=== PATIENT | male | born 1985 | race Two or more races ===

== ENCOUNTER 2024-08-29 10:14 | Emergency (ER) | payer MEDICAID, SELFPAY ==
[2024-08-29 10:33] VITALS: BP 142/74; PULSE 71; RESP 19; TEMP 36.7; O2SAT 98
[2024-08-29 10:35] VITALS: BMI 26.8
--- NOTE | 2024-08-29 10:41 | PD.EDADULT ---
ED General RME/HPI General Chief complaint: General Adult/Misc Complain Stated complaint: ITCHING AND WARTS ON PENIS Time Seen by Provider: 08/29/24 10:21 Source: patient Arrival date/time: 08/29/24 10:14 38-year-old male with no known medical history presents to the emergency room with a chief complaint of itching and small warts on his penis x 2 weeks Mode of arrival: ambulatory Limitations: no limitations Related Data Allergies Allergy/AdvReac Type Severity Reaction Status Date / Time No Known Allergies Allergy Verified 08/29/24 10:19 Review of Systems Review of Systems Systems Reviewed: All systems reviewed, normal except as documented Constitutional Constitutional: Reports system reviewed and no additional complaints, except as documented, Denies fatigue, Denies fever(s), Denies headache(s) and Denies weakness Eyes Eyes: Reports system reviewed and no additional complaints, except as documented, Denies blurry vision and Denies change in vision ENT Ears, Nose, Mouth, and Throat: Reports system reviewed and no additional complaints, except as documented, Denies otalgia, Denies headache(s), Denies nasal congestion, Denies throat swelling and Denies vertigo Cardiovascular Cardiovascular: Reports system reviewed and no additional complaints, except as documented, Denies chest pain, Denies dyspnea and Denies dyspnea on exertion Respiratory Respiratory: Reports system reviewed and no additional complaints, except as documented, Denies chest congestion, Denies cough, Denies dyspnea, Denies dyspnea on exertion and Denies wheezing Gastrointestinal Gastrointestinal: Reports system reviewed and no additional complaints, except as documented, Denies abdominal pain, Denies cramping, Denies nausea and Denies vomiting Genitourinary Genitourinary: Reports system reviewed and no additional complaints, except as documented, Denies dysuria and Denies hematuria Musculoskeletal Musculoskeletal: Reports system reviewed and no additional complaints, except as documented and Denies back pain Integumentary/Breasts Skin/Breast: Reports system reviewed and no additional complaints, except as documented and Denies wounds Neurologic Neurologic: Reports system reviewed and no additional complaints, except as documented, Denies confusion, Denies headache(s), Denies lack of coordination, Denies vertigo and Denies weakness Psychiatric Psychiatric: Reports system reviewed and no additional complaints, except as documented, Denies anxiety, Denies confusion, Denies depression, Denies paranoia, Denies suicidal ideation and Denies tactile hallucinations Endocrine Endocrine: Reports system reviewed and no additional complaints, except as documented and Denies fatigue Hematologic/Lymphatic Hematologic/Lymphatic: Reports system reviewed and no additional complaints, except as documented and Denies lymphadenopathy Allergic/Immunologic Allergic/Immunologic: Reports system reviewed and no additional complaints, except as documented, Denies throat swelling, Denies urticaria and Denies wheezing ED Exam General Limitations: Present no limitations General appearance: Present alert and in no apparent distress Head Head exam: Present atraumatic Eye Eye exam: Present normal appearance, PERRL and EOMI ENT ENT exam: Present normal exam, normal oropharynx and mucous membranes moist Neck Neck exam: Present normal inspection, full ROM and trachea midline Chest Chest inspection: Present normal inspection and symmetric chest wall rise Respiratory Respiratory exam: Present normal lung sounds bilaterally Cardiovascular Cardiovascular exam: Present regular rate, normal rhythm and normal heart sounds Abdominal Exam Abdominal exam: Present soft and normal bowel sounds exam: Absent circumcised Expanded Exam exam: Present other (3 small warts to the head of the penis) Extremities Exam Extremities exam: Present normal inspection and full ROM Back Exam Back exam: Present normal inspection and full ROM Neurological Exam Neurological exam: Present alert, oriented X3 and CN II-XII intact Psychiatric Psychiatric exam: Present normal affect and normal mood Skin Skin exam: Present warm, dry, intact and normal color Course Quality Measures none Orders Category Date Time Status Chlamydia/GC/TV - PCR Stat Lab 08/29/24 13:23 Received Syphilis Stat Lab 08/29/24 11:08 Completed UA, C/S IF [Urinalysis, C/S if Indicated] Stat Lab 08/29/24 13:23 Completed Vital Signs Vital signs: Vital Signs Temperature 98.1 F 08/29/24 10:33 Pulse Rate 71 08/29/24 10:33 Respiratory Rate 19 08/29/24 10:33 Blood Pressure 142/74 H 08/29/24 10:33 Pulse Oximetry (%) 98 08/29/24 10:33 Oxygen Delivery Method Room Air 08/29/24 10:33 O2 saturation 98% within normal limits he will MDM Patient data External records reviewed:: [facility] previous records Clinical information provided by:: patient Social determinants that could affect healthcare access:: none Patient has the following chronic illnesses:: No chronic illness How is presenting disease/condition affected by chronic disease/condition?: no chronic disease Evaluation data The following diagnostics were reviewed and interpreted by me:: lab results and radiology exam(s) Lab and/or radiology exams considered but not ordered:: Labs and radiology exams considered and ordered Interpretation Summary: N/A Medications Medications considered but not ordered:: No medication given Medication administrations:: No medication given Consultations Consultation(s) initiated? (list below): No Diagnosis Differential Diagnosis ED Complaint MDM: HPV/UTI/chlamydia/gonorrhea/syphilis Most likely diagnosis given after review of the tests above:: HPV Admission Indicated Admission indicated?: not indicated Explain why admission is indicated or not indicated:: N/A Admission Request Was there a request for admission?: No Disposition Plan Disposition Plan: Discharge Discharge Attestation Discharge Attestation: The patient and all family members were given an opportunity to ask questions and understood the discharge instructions. Discharge instructions specifically effects, indications for sooner follow up or return to the emergency department, and the expected course of current diagnosis. Patient condition: Stable Medical Decision Making MDM Narrative MDM Narrative: 38-year-old male with no known medical history presents to the emergency room with a chief complaint of itching and small warts on his penis x 2 weeks Differential Diagnosis Differential Diagnosis: HPV/UTI/chlamydia/gonorrhea/syphilis Lab Data Labs: Lab Results 08/29/24 08/29/24 Range/Units 11:08 13:23 Ur Collection Type Clean Catch Urine Color Lt-Yellow (Lt Yel-Yel) Urine Clarity Turbid A (Clear/Hazy) Urine pH 7.5 H (5.0-7.0) Ur Specific [place] 1.016 (1.001-1.035) Urine Protein Negative (Neg - Trace) Urine Glucose (UA) Negative (Negative) Urine Ketones Negative (Negative) Urine Blood Negative (Negative) Urine Nitrite Negative (Negative) Urine Bilirubin Negative (Negative) Urine Urobilinogen (Auto) Negative (0.0-1.0) mg/dL Ur Leukocyte Esterase Negative (Negative) Urine RBC 0 (0-3) /hpf Urine WBC 0 (0-5) /hpf Ur Squamous Epith Cells 0 (0-5) /hpf Amorphous Crystals Present A (Absent) Urine Bacteria None (None) Ur Culture Indicated? 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 For any evidence of worsening signs or symptoms please return to the emergency room immediately Print Language: Cypriot Stand Alone Forms: [place] Award Info., Patient Portal Info Letter PA/TONYA Supervising Physician PA/TONYA Supervising Physician: Dr Jesus
[2024-08-29 12:02] LABS: Syphilis Nonreactive (Nonreactive)
[2024-08-29 13:41] LABS: Collection Type, Urine Clean Catch; RBC,Urine 0 /hpf (0-3); Squamous Epithelial Cell,Urine 0 /hpf (0-5); WBC,Urine 0 /hpf (0-5)
[2024-08-29 13:58] LABS: Amorphous Crystals,Urine Present (Absent); Bilirubin,Urine Negative (Negative); Blood,Urine Negative (Negative); Clarity,Urine Turbid (Clear/Hazy); Color,Urine Lt-Yellow (Lt Yel-Yel); Culture Indicated,Urine Not Indicated; Glucose, Urine Negative (Negative); Ketones,Urine Negative (Negative); Leukocyte Esterase,Urine Negative (Negative); Nitrite,Urine Negative (Negative); PH,Urine 7.5 (5.0-7.0); Protein,Urine Negative (Neg - Trace); Specific Gravity,Urine 1.016 (1.001-1.035); Urobilinogen,Urine Negative mg/dL (0.0-1.0)
[2024-08-29 14:58] VITALS: BP 128/82; PULSE 55; RESP 18; TEMP 36.9; O2SAT 98
[2024-08-29 16:50] LABS: Chlamydia trachomatis PCR Negative (Not Detect); Neisseria Gonorrhoeae DNA PCR Negative (Not Detect); Trichomonas Negative (Negative)
== END 2024-08-29 15:07 | disposition home or self-care (01) ==
PROVIDERS: Nurse Practitioner Family; Emergency Provider Emergency Medicine
DX: A63.0 Anogenital (venereal) warts (principal)
CPT/HCPCS: 36415; 81001; 86780; 87491; 87591; 87661; 99283